=== PATIENT | female | born 1985 | race Two or more races ===

== ENCOUNTER 2024-12-27 04:13 | Emergency (ER) | payer OTHER ==
[~2024-12-27] VITALS: Ht 167.6 cm; Wt 81.6 kg
[2024-12-27] MEDS ORDERED: METOCLOPRAMIDE HCL 5 MG/ML VIAL IM STA (04:35)
[2024-12-27] MEDS ORDERED: RINGERS SOLUTION,LACTATED 1,000 ML IV STA (04:37)
[2024-12-27] MEDS ORDERED: FAMOtidine 10 MG/ML (4ML VIAL) IV PUSH STA (04:37)
[2024-12-27] MEDS ORDERED: FLUMAZENIL 0.5 MG/5 ML ML IV STA (04:39)
[2024-12-27] MEDS ORDERED: NALOXONE HCL 0.4 MG/ML AMPUL IV STA (04:39)
[2024-12-27] MEDS ORDERED: FAMOTIDINE/PF 20 MG/2 ML VIAL ONE (04:50)
[2024-12-27] MEDS ORDERED: NALOXONE HCL 0.4 MG/ML AMPUL ONE (04:50)
[2024-12-27] MEDS ORDERED: METOCLOPRAMIDE HCL 5 MG/ML VIAL ONE (04:50)
[2024-12-27 06:49] LABS: ALBUMIN 3.5 gm/dL (3.4-5.0); BILIRUBIN TOTAL 0.22 mg/dL (0.3-1.2); CREATININE SERUM 0.91 mg/dL (0.55-1.02); GFR 68.47; GLOBULINA 3.8 G/DL (2.4-3.5); POTASSIUM 3.98 mEq/L (3.5-5.1); TOTAL PROTEIN 7.3 gm/dL (6.4-8.2)
[2024-12-27 07:47] LABS: HEMATOCRIT 34.5 % (36.0-45.00); MEAN CORPUSCULAR HEMOGLOBIN 22.7 pg (27.00-32.0); MEAN CORPUSCULAR HGB CONC 32.7 g/dl (32.0-36.0); RED BLOOD COUNT 4.97 M/uL (4.00-6.00); RED CELL DISTRIBUTION WIDTH 16.3 % (11.5-14.5)
[2024-12-27 07:50] LABS: HEMOGLOBIN 11.3 g/dL (12.0-15.00); MEAN CELL VOLUME 69.4 fL (80.00-100.00); PLATELET COUNT 505 K/uL (150-450)
[2024-12-27 09:27] LABS: INR 1.04; PROTHROMBIN TIME 11.3 SECONDS (9.0-11.5)
[2024-12-27] MEDS ORDERED: KETOROLAC TROMETHAMINE 30 MG VIAL ONE (10:09)
== END 2024-12-27 12:30 | disposition home or self-care (01) ==
LOC: ER 04:13
DX: R11.10 Vomiting, unspecified (principal); F12.929 Cannabis use, unspecified with intoxication, unspecified; F10.90 Alcohol use, unspecified, uncomplicated